=== PATIENT | male | born 1965 | race Caucasian/White ===

== ENCOUNTER 2017-05-06 09:04 | Emergency (ER) | payer OTHER ==
[~2017-05-06] VITALS: Ht 170.2 cm; Wt 96.9 kg
[2017-05-06 10:09] LABS: HEMATOCRIT 40.5 % (38.0-50.0); HEMOGLOBIN 13.1 G/DL (12.5-16.6); MCH 28.9 PG (29.0-34.0); MCHC 32.3 G/DL (30.0-36.0); MCV 89.2 FL (86-99); PLATELET COUNT 251 K/uL (156-360); RBC DIS.WIDTH-CV 12.1 % (11.8-14.6); RBC DIS.WIDTH-SD 39.8 % (39-53); RED BLOOD COUNT 4.54 M/uL (4.00-5.50)
[2017-05-06 10:20] LABS: CHLORIDE 101 mEq/L (99-109); POTASSIUM 4.5 mEq/L (3.7-5.4); SODIUM 135 mEq/L (136-147)
[2017-05-06 10:22] LABS: GLUCOSE 165 mg/dL (70-99)
[2017-05-06 10:26] LABS: CREATININE 1.2 mg/dL (0.6-1.3); GFR ESTIMATE (CALCULATED) > 59 mL/min/ (58.99-99999)
[2017-05-06 10:27] LABS: UREA NITROGEN (BUN) 11 mg/dL (9-23)
[2017-05-06 10:29] LABS: TROP-I INTERPRETATION NEGATIVE; TROPONIN-I < 0.01 ng/mL (0.0-0.30)
[2017-05-06 12:54] LABS: TROP-I INTERPRETATION NEGATIVE; TROPONIN-I < 0.01 ng/mL (0.0-0.30)
[2017-05-06] MEDS ORDERED: FLEXERIL10 MG PO (13:37)
[2017-05-06] MEDS ORDERED: ZITHROMAX Z-PA250 MG PO (13:37)
[2017-05-06] MEDS ORDERED: LIDODERM 5% P1 PATCH TD (13:37)
[2017-05-06 14:06] VITALS: BP 126/83
== END 2017-05-06 14:08 | disposition home or self-care (01) ==
LOC: EME 09:04
PROVIDERS: Nurse Practitioner Family
DX: J18.9 Pneumonia, unspecified organism (principal); M54.5 Low back pain; G89.29 Other chronic pain; M51.36 Other intervertebral disc degeneration, lumbar region
CPT/HCPCS: 71046; 80048; 84484; 85027; 93005; J3010